=== PATIENT | female | born 1950 | race Caucasian/White ===

== ENCOUNTER 2017-06-30 08:25 | Day surgery (SDC) | payer MEDICARE, OTHER ==
[~2017-06-30 08:25] MED LIST: MEFOXIN 2 GM PREMIX** 50 ML IV ONE
[2017-06-30] MEDS ORDERED: VERSED 5 MG/5 ML IV ONE (08:26)
[2017-06-30] MEDS ORDERED: DEMEROL 50 MG IJ ONE (08:26)
[2017-06-30] MEDS ORDERED: Lactated Ringers 1,000 ML IV SCH (08:30)
[2017-06-30] MEDS: Sodium Chloride 0.9% 1000 ML 1,000 ML IV SCH ×2 (08:34→08:47)
[2017-06-30] MEDS ORDERED: Sodium Chloride 0.9% 1000 ML 1,000 ML ONE (08:45)
[2017-06-30 08:54] VITALS: O2SAT 99
[2017-06-30 11:52] VITALS: BP 122/75; PULSE 57
--- NOTE | 2017-07-01 08:29 | OP ---
SURGERY DATE/TIME: 06/30/2017 1001 PREOPERATIVE DIAGNOSES: 1) Epigastric pain. 2) Screening colonoscopy. POSTOPERATIVE DIAGNOSIS: PROCEDURES: 1) EGD with hot polypectomy x12. 2) Colonoscopy complete to cecum with hot polypectomy x1. SURGEON: Sloo Hester M.D. ANESTHESIA: IV sedation. COMPLICATIONS: None. CONDITION: Stable. INDICATION: The patient has epigastric pain. She has had heart cath and stents. She has not had a recent endoscopic examination. She is also requiring a screening for lower examination. DESCRIPTION OF PROCEDURE: She was taken to endoscopy suite. Left lateral decubitus position. After suitable sedation obtained the scope introduced. The esophagus is normal down to gastroesophageal junction. There was a rim of esophagitis grade III. The fundus and body had a generous number of polyps. Antrum satisfactory. Pylorus satisfactory. Duodenal bulb satisfactory. The second portion satisfactory. The scope withdrawn and looped upon itself. About a dozen polyps were coagulated. Floor Care Specialist sample submitted. Again noted grade III over III gastroesophageal reflux disease. No hiatal hernia. Scope withdrawn. Anal digital examination satisfactory. The scope advanced to the cecum. Base of the cecum clearly identified. There was a polyp 1 inch up from the base of the cecum taken with hot biopsy forceps. The scope was then advanced to the anus. Ascending, hepatic, transverse, splenic, descending, sigmoid, rectum, anus was satisfactory. Satisfactory prep today. Plan follow up in five years.
== END 2017-06-30 11:50 | disposition home or self-care (01) ==
LOC: SDC 08:25
PROVIDERS: ATTEND Surgery
PROC: 0DB68ZX Excision of Stomach, Via Natural or Artificial Opening Endoscopic, Diagnostic (ICD-10-PCS; principal; 2017-06-30)
PROC: 0DBH8ZX Excision of Cecum, Via Natural or Artificial Opening Endoscopic, Diagnostic (ICD-10-PCS; 2017-06-30)
DX: K21.9 Gastro-esophageal reflux disease without esophagitis (principal); D12.0 Benign neoplasm of cecum; K31.7 Polyp of stomach and duodenum; Z12.11 Encounter for screening for malignant neoplasm of colon; K20.9 Esophagitis, unspecified; Z85.3 Personal history of malignant neoplasm of breast; Z85.828 Personal history of other malignant neoplasm of skin; Z85.810 Personal history of malignant neoplasm of tongue
CPT/HCPCS: 36415; 88305; J2175; J2250

== ENCOUNTER 2020-08-26 13:31 | Emergency (ER) | payer MEDICARE, OTHER ==
[2020-08-26] MEDS ORDERED: TORAdol 30 mg Injection ONE (14:13)
[2020-08-26] MEDS: TORAdol 30 mg Injection IV ONE (14:14)
--- NOTE | 2020-08-26 14:31 | ERPHSYRPT ---
- History of Present Illness Historian: patient Patient Subjective Stated Complaint: pt here for right flank pain sudden onset today. no fever, no diffulity urination Triage Nursing Assessment: pt alert ,rubbing holding side,moaning out, abd soft, Physician History: 70 yo Wf w R flank pain x 50 minutes. Pt has a h/o kidney stones and states that pain is similar. Pain ranked 10 on scale and nothing makes better. Lying flat makes worse. Pt denies fever/N/V/D/chest pain/trauma/dysuria/hematuria. She states that we are limited to 1 stick for IV access, and I told her that we are trying to help her to the best of our abilities but would respect her wishes/restrictions. Timing/Duration: other (50min) Quality: aching Abdominal Pain Onset Location: flank Pain Radiation: no radiation Severity of Pain-Max: severe Severity of Pain-Current: severe Modifying Factors: Improves With: other (Nothing makes better/Worse w lying down) Associated Symptoms: back, No chest pain, No diaphoresis, No diarrhea, No fever/chills, No fatigue, No headache, No heartburn, No loss of appetite, No nausea, No neck pain, No rash, No shortness of breath, No syncope, No vomiting, No weakness Previous symptoms: same symptoms as today Allergies/Adverse Reactions: acetaminophen [From Vicodin] Allergy (Verified 08/26/20 13:44) amoxicillin Allergy (Verified 08/26/20 13:44) Swelling of Face azithromycin Allergy (Verified 08/26/20 13:44) Rash cephalexin monohydrate [From Keflex] Allergy (Verified 08/26/20 13:44) Swelling of Face doxycycline Allergy (Verified 08/26/20 13:44) Itching hydrocodone bitartrate [From Vicodin] Allergy (Verified 08/26/20 13:44) levofloxacin [From Levaquin] Allergy (Verified 08/26/20 13:44) methylprednisolone Allergy (Verified 08/26/20 13:44) Rash Sulfa (Sulfonamide Antibiotics) Allergy (Verified 08/26/20 13:44) Swelling of Eyelids sulfamethoxazole [From Bactrim] Allergy (Verified 08/26/20 13:44) Swelling of Tongue and Lips Tetanus Vaccines and Toxoid [Tetanus Vaccines & Toxoid] Allergy (Verified 08/26/20 13:44) Tightness of Throat trimethoprim [From Bactrim] Allergy (Verified 08/26/20 13:44) Blisters chlorpheniramine [From Tussionex] Adverse Reaction (Verified 08/26/20 13:44) Shortness of Breath ciprofloxacin [From Cipro] Adverse Reaction (Verified 08/26/20 13:44) Swelling of Face clindamycin Adverse Reaction (Verified 08/26/20 13:44) Itchy Eyes hydrocodone [From Tussionex] Adverse Reaction (Verified 08/26/20 13:44) Shortness of Breath loratadine [From Claritin] Adverse Reaction (Verified 08/26/20 13:44) Itching Home Medications: Levothyroxine Sodium 50 Mcg [Synthroid 50 Mcg] 50 mcg PO DAILY 12/30/14 [History] Cholecalciferol (Vitamin D3) [Vitamin D3] 1,000 unit PO DAILY 06/23/17 [History] Lansoprazole [Prevacid 24Hr] 15 mg PO DAILY 06/30/17 [History] Spironolactone 25 mg [Aldactone 25 MG] 1 ea DAILY 08/26/20 [History] Hx Tetanus, Diphtheria Vaccination/Date Given: No Hx Influenza Vaccination/Date Given: Yes Hx Pneumococcal Vaccination/Date Given: Yes Immunizations Up to Date: Yes Travel Risk - International Travel Have you traveled outside of the country in past 3 weeks: No - Coronavirus Screening Are you exhibiting any of the following symptoms?: No Close contact with a COVID-19 positive Pt in past 14-21 Days: No - Review of Systems Constitutional: No Symptoms Eyes: No Symptoms Ears, Nose, & Throat: No Symptoms Respiratory: No Symptoms Cardiac: No Symptoms Abdominal/Gastrointestinal: No Symptoms Genitourinary Symptoms: No Symptoms Musculoskeletal: No Symptoms Skin: No Symptoms Neurological: No Symptoms Psychological: No Symptoms Endocrine: No Symptoms Hematologic/Lymphatic: No Symptoms Immunological/Allergic: No Symptoms - Past Medical History Pertinent Past Medical History: Yes Neurological History: No Pertinent History ENT History: No Pertinent History Cardiac History: Arrhythmia, Hypertension Respiratory History: No Pertinent History Endocrine Medical History: Hypothyroidism Musculoskeletal History: Arthritis GI Medical History: Gallbladder Disease, Hernia, Other History: Other Psycho-Social History: No Pertinent History Female Reproductive Disorders: Breast Cancer, Other Other Medical History: BREAST CA W/ MASTECTOMY 17-18 YEARS AGO. , throat cancer - Past Surgical History Past Surgical History: Yes Neuro Surgical History: No Pertinent History Cardiac: Cardiac Catheterization Respiratory: Other Gastrointestinal: Appendectomy, Cholecystectomy, Hernia Repair Genitourinary: Other Musculoskeletal: Joint Replacement, Other Female Surgical History: Hysterectomy, Mastectomy Other Surgical History: breast ca,breast reconstruction twice,bladd er,1988,2006,colopexy 2008, right groin hernior. 2006,heart cath 2011,face skin cancer 2014,tongue cancer 2015,2017 - Social History Smoking Status: Never smoker Exposure to second hand smoke: No Drug Use: none Patient Lives Alone: Yes Significant Family History: no pertinent family hx - Female History Hx Last Menstrual Period: post Hx Now: No - Nursing Vital Signs Nursing Vital Signs: Initial Vital Signs Temperature 97.4 F 08/26/20 13:48 Pulse Rate 79 08/26/20 13:48 Respiratory Rate 22 08/26/20 13:48 Blood Pressure 197/93 08/26/20 13:48 O2 Sat by Pulse Oximetry 100 08/26/20 13:48 Pain Scale Pain Intensity 0 - Physical Exam General Appearance: mild distress (Due to pain) Eye Exam: PERRL/EOMI, eyes nml inspection, No scleral icterus, No pale conjunctivae Ears, Nose, Throat Exam: normal ENT inspection, TMs normal, pharynx normal, moist mucous membranes Neck Exam: normal inspection, non-tender, supple, full range of motion Respiratory Exam: normal breath sounds, lungs clear, No chest tenderness, No respiratory distress Cardiovascular Exam: regular rate/rhythm, normal heart sounds, normal peripheral pulses, No murmur Gastrointestinal/Abdomen Exam: soft, normal bowel sounds, No tenderness Back Exam: CVA tenderness (R flank) Extremity Exam: normal inspection, normal range of motion Neurologic Exam: alert, oriented x 3, cooperative, quality assurance assessor II-XII nml as tested, normal mood/affect, sensation nml, No motor deficits, No sensory deficit Skin Exam: normal color Lymphatic Exam: No adenopathy SpO2 Interpretation: normal SpO2: 100 O2 Delivery: Room Air - CT Exams Abdomen/Pelvis CT Interpretation: Discussed w/radiologist (2-3 mm R UVJ stone w hydro) Ordered Tests: Active Orders 24 hr Category Date Time Status IV Insertion STAT Care 08/26/20 14:14 Active ABDOMEN AND PELVIS W/0 CONTRAS [CT] Stat Exams 08/26/20 13:57 Completed CULTURE,URINE Stat Lab 08/26/20 16:20 Received UA W/RFX UR CULTURE Stat Lab 08/26/20 16:20 Completed Medication Summary Discontinued Medications Generic Name Dose Route Start Last Admin Trade Name Jose Luis PRN Reason Stop Dose Admin Sodium Chloride 1,000 mls @ 999 mls/hr 08/26/20 15:14 08/26/20 16:23 Sodium Chloride 0.9% 1000 Ml IV 08/26/20 16:14 Infused .Q1H1M STA Infusion Sodium Chloride Confirm 08/26/20 15:17 Sodium Chloride 0.9% 1000 Ml Administered 08/26/20 15:18 Dose 1,000 mls @ ud .ROUTE .STK-MED ONE Ketorolac Tromethamine 15 mg 08/26/20 13:57 08/26/20 14:14 Toradol 30 Mg Injection IV 08/26/20 13:58 15 mg STAT ONE Administration Ketorolac Tromethamine Confirm 08/26/20 14:13 Toradol 30 Mg Injection Administered 08/26/20 14:14 Dose 30 mg .ROUTE .STK-MED ONE Lab/Rad Data: Laboratory Results 08/26/20 Range/Units 16:20 Urine Color YELLOW (YELLOW) Urine Appearance CLEAR (CLEAR) Urine pH 6.0 (5-6) Ur Specific [place] 1.008 (1.005-1.025) Urine Protein NEGATIVE (Negative) Urine Ketones NEGATIVE (NEGATIVE) Urine Blood LARGE (0-5) [place]/ul Urine Nitrite NEGATIVE (NEGATIVE) Urine Bilirubin NEGATIVE (NEGATIVE) Urine Urobilinogen NEGATIVE (0-1) mg/dL Ur Leukocyte Esterase SMALL (NEGATIVE) Urine WBC (Auto) 3-5 (0-5) /HPF Urine RBC (Auto) 11-15 (0-2) /HPF U Epithel Cells (Auto) NONE (FEW) /HPF Urine Bacteria (Auto) RARE (NEGATIVE) /HPF Urine Mucus (Auto) SLIGHT (NEGATIVE) /HPF Urine Culture Reflexed YES (NO) Urine Glucose NEGATIVE (NEGATIVE) mg/dL - Progress Progress: improved Progress Note: 08/26/20 16:39 Pt became painfree w 15mg IV Toradol. - Departure Departure Disposition: Home Clinical Impression: Ureterolithiasis, Urinary tract infection Condition: Stable Critical Care Time: No Referrals: SANIYA SIMPSON [Primary Care Provider] - Instructions: Kidney Stones (DC), Urinary Tract Infection, Adult (DC) Additional Instructions: Strain all urine Pain meds as needed Cipro twice a day for 3 days Follow up with your family MD or urologist Return to ER for increasing pain or temperature greater than 100.5 Prescriptions: Hydrocodone/APAP 5-325 Tab^^^ [[place] 5-325 Tablet^^^] 1 each PO Q6HPRN PRN #5 tablet MDD 6 PRN Reason: Pain Ciprofloxacin HCl [Cipro] 500 mg PO BID 3 Days #6 tablet
--- NOTE | 2020-08-26 14:56 | XRAY ---
Indication: Right flank pain 4 days. Multiple contiguous axial images obtained through the abdomen and pelvis without contrast using renal stone protocol. Comparison: August 18, 2018. Lung bases again demonstrates minimal dependent atelectasis. No infiltrate or effusion. Heart is not enlarged. Stable small hiatal hernia. New 2-3 mm right UVJ calculus. Proximal right ureter is slightly prominent and there is mild hydronephrosis consistent with partial obstructive uropathy. Additional new punctate calculus in the right lower renal calyx. Stable hepatic/bilateral renal cysts, bilateral adrenal hypertrophy, appendectomy, hysterectomy, and cholecystectomy. No free fluid/air. Noncontrasted stomach and bowel loops appear nonobstructed. Stable sigmoid diverticulosis. Remaining liver, pancreas, spleen, adrenal glands, kidneys, ureters, and bladder appear unremarkable for noncontrast exam. Stable mild aortoiliac calcifications without AAA. Osseous structures intact again with mild degenerative changes throughout the thoracolumbar spine, minimal grade 1 L4 spondylolisthesis, and tiny left innominate bone island. Impression: 1. New 2-3 mm right UVJ calculus producing partial obstructive uropathy. Additional right renal micro-calculus. 2. Stable sigmoid diverticulosis, small hiatal hernia, hepatic/bilateral renal cysts, bilateral adrenal hypertrophy, and chronic bony findings.
[2020-08-26] MEDS ORDERED: Sodium Chloride 0.9% 1000 ML 1,000 ML ONE (15:17)
[2020-08-26] MEDS: Sodium Chloride 0.9% 1000 ML 1,000 ML IV STA (15:19)
[2020-08-26 16:32] LABS: Appearance CLEAR (CLEAR); Bacteria RARE /HPF (NEGATIVE); Bilirubin NEGATIVE (NEGATIVE); Blood LARGE Ery/ul (0-5); Glucose NEGATIVE (NEGATIVE); Ketones NEGATIVE (NEGATIVE); Leukocyte Esterase SMALL (NEGATIVE); Mucus SLIGHT /HPF (NEGATIVE); Nitrite NEGATIVE (NEGATIVE); Protein,Urine Dip NEGATIVE (Negative); Specific Gravity 1.008 (1.005-1.025); Urobilinogen NEGATIVE mg/dL (0-1)
[2020-08-26 16:54] VITALS: BP 170/83; PULSE 76; O2SAT 97
== END 2020-08-26 17:00 | disposition home or self-care (01) ==
LOC: ED 13:31
DX: N20.1 Calculus of ureter (principal); N39.0 Urinary tract infection, site not specified
CPT/HCPCS: 36000; 74176; 81001; 87086; 96360; 96374; 99284; J1885

== ENCOUNTER 2022-06-11 11:37 | Emergency (ER) | payer MEDICARE, OTHER ==
--- NOTE | 2022-06-11 11:39 | ERPHSYRPT ---
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 Conklin. She has not been on spironolactone for 2 weeks. Today she felt as though she was having a little bit of a headache and may be some visual changes that were minor but present. Her systolic blood pressure at that time was 171. She then called the ambulance service and they took her blood pressure and that systolic blood pressure reading was 200. Patient refused transport to the emergency department. Patient arrives to the emergency department with a systolic blood pressure of 208. Patient is refusing an IV. Patient does have a history of hypothyroidism and gastroesophageal reflux disease as well as some renal issues. Timing/Duration: today Associated Symptoms: headaches, No shortness of breath, No chest pain Allergies/Adverse Reactions: amoxicillin Allergy (Verified 06/11/22 12:24) Swelling of Face azithromycin Allergy (Verified 06/11/22 12:24) Rash cephalexin monohydrate [From Keflex] Allergy (Verified 06/11/22 12:24) Swelling of Face cetirizine [From Zyrtec] Allergy (Verified 06/11/22 12:24) doxycycline Allergy (Verified 06/11/22 12:24) Itching methylprednisolone Allergy (Verified 06/11/22 12:24) Rash ranitidine [From Zantac] Allergy (Verified 06/11/22 12:24) Sulfa (Sulfonamide Antibiotics) Allergy (Verified 06/11/22 12:24) Swelling of Eyelids sulfamethoxazole [From Bactrim] Allergy (Verified 06/11/22 12:24) Swelling of Tongue and Lips Tetanus Vaccines and Toxoid [Tetanus Vaccines & Toxoid] Allergy (Verified 06/11/22 12:24) Tightness of Throat trimethoprim [From Bactrim] Allergy (Verified 06/11/22 12:24) Blisters chlorpheniramine [From Tussionex] Adverse Reaction (Verified 06/11/22 12:24) Shortness of Breath ciprofloxacin [From Cipro] Adverse Reaction (Verified 06/11/22 12:24) Swelling of Face clindamycin Adverse Reaction (Verified 06/11/22 12:24) Itchy Eyes hydrocodone [From Tussionex] Adverse Reaction (Verified 06/11/22 12:24) Shortness of Breath loratadine [From Claritin] Adverse Reaction (Verified 06/11/22 12:24) Itching Home Medications: Levothyroxine Sodium 50 Mcg [Synthroid 50 Mcg] 50 mcg PO DAILY 12/30/14 [History] Cholecalciferol (Vitamin D3) [Vitamin D3] 1,000 unit PO DAILY 06/23/17 [History] Lansoprazole [Prevacid 24Hr] 15 mg PO DAILY 06/30/17 [History] Spironolactone 25 mg [Aldactone 25 MG] 1 ea DAILY 08/26/20 [History] Hx Tetanus, Diphtheria Vaccination/Date Given: No Hx Influenza Vaccination/Date Given: Yes Hx Pneumococcal Vaccination/Date Given: Yes Travel Risk - International Travel Have you traveled outside of the country in past 3 weeks: No - Coronavirus Screening Are you exhibiting any of the following symptoms?: No Close contact with a COVID-19 positive Pt in past 14-21 Days: No - Review of Systems Constitutional: No Symptoms Eyes: Vision Changes (Minor blurred visionresolved) Ears, Nose, & Throat: No Symptoms Respiratory: No Symptoms Cardiac: No Symptoms Abdominal/Gastrointestinal: No Symptoms Genitourinary Symptoms: No Symptoms Musculoskeletal: No Symptoms Skin: No Symptoms Neurological: Headache Psychological: No Symptoms Endocrine: No Symptoms Hematologic/Lymphatic: No Symptoms Immunological/Allergic: No Symptoms All Other Systems: Reviewed and Negative - Past Medical History Pertinent Past Medical History: Yes Neurological History: No Pertinent History ENT History: No Pertinent History Cardiac History: Hypertension Respiratory History: No Pertinent History Endocrine Medical History: Hypothyroidism Musculoskeletal History: Arthritis GI Medical History: Gallbladder Disease, Hernia, Other History: Other Psycho-Social History: No Pertinent History Female Reproductive Disorders: Breast Cancer, Other Other Medical History: BREAST CA W/ MASTECTOMY 17-18 YEARS AGO. , throat cancer - Past Surgical History Past Surgical History: Yes Neuro Surgical History: No Pertinent History Cardiac: Cardiac Catheterization Respiratory: Other Gastrointestinal: Appendectomy, Cholecystectomy, Hernia Repair Genitourinary: Other Musculoskeletal: Joint Replacement, Other Female Surgical History: Hysterectomy, Mastectomy Other Surgical History: breast ca,breast reconstruction twice,trisha dder,1988,2006,colopexy 2008, right groin hernior. 2007,heart cath 2011,face skin cancer 2015,tongue cancer 2016,2017 - Social History Smoking Status: Never smoker Exposure to second hand smoke: No Drug Use: none Patient Lives Alone: Yes Significant Family History: no pertinent family hx - Nursing Vital Signs Nursing Vital Signs: Initial Vital Signs Temperature 98.3 F 06/11/22 11:53 Pulse Rate 80 06/11/22 11:53 Respiratory Rate 15 06/11/22 11:53 Blood Pressure 208/103 06/11/22 11:53 O2 Sat by Pulse Oximetry 99 06/11/22 11:53 Pain Scale Pain Intensity 5 - Physical Exam General Appearance: no apparent distress, alert, anxiety Eye Exam: PERRL/EOMI, eyes nml inspection Ears, Nose, Throat Exam: normal ENT inspection, moist mucous membranes Neck Exam: normal inspection, non-tender, supple, full range of motion Respiratory Exam: normal breath sounds, lungs clear, airway intact, No chest tenderness, No respiratory distress Cardiovascular Exam: regular rate/rhythm, normal heart sounds, normal peripheral pulses Gastrointestinal/Abdomen Exam: soft, normal bowel sounds, No tenderness Pelvic Exam: not done Rectal Exam: not done Back Exam: normal inspection, normal range of motion, No CVA tenderness, No vertebral tenderness Extremity Exam: normal inspection, normal range of motion, pelvis stable Neurologic Exam: alert, oriented x 3, cooperative, bread icer II-XII nml as tested, normal mood/affect, nml cerebellar function, nml station & gait, sensation nml Skin Exam: normal color, warm, dry Lymphatic Exam: No adenopathy SpO2 Interpretation: normal O2 Delivery: Room Air - Course Nursing assessment & vital signs reviewed: Yes EKG Interpreted by Me: RATE (70), Sinus Rhythm, Left [place] Deviation, NORMAL INTERVALS, NORMAL QRS, NORMAL ST-T, Other (No acute ischemic changes present) Ordered Tests: Active Orders 24 hr Category Date Time Status Automatic Machines Supervisor STAT Care 06/11/22 12:01 Active EKG-ER Only STAT Care 06/11/22 12:01 Active IV Insertion STAT Care 06/11/22 12:01 Active NPO (ED) STAT Care 06/11/22 12:01 Active Pulse Oximetry (ED) STAT Care 06/11/22 12:01 Active HEAD WITHOUT CONTRAST [CT] Stat Exams 06/11/22 12:18 Completed CBC W DIFF Stat Lab 06/11/22 12:40 Completed CMP Stat Lab 06/11/22 12:40 Completed T4 (Thyroxine) Stat Lab 06/11/22 12:40 Completed TSH [TSH, 3RD Generation] Stat Lab 06/11/22 12:40 Completed Medication Summary Discontinued Medications Generic Name Dose Route Start Last Admin Trade Name Jose Luis PRN Reason Stop Dose Admin Clonidine 0.1 mg 06/11/22 12:02 06/11/22 12:14 Clonidine Hcl 0.1 Mg Tablet PO 06/11/22 12:03 0.1 mg STAT ONE Administration Clonidine Confirm 06/11/22 12:14 Clonidine Hcl 0.1 Mg Tablet Administered 06/11/22 12:15 Dose 0.1 mg .ROUTE .STK-MED ONE Clonidine 0.1 mg 06/11/22 13:34 06/11/22 13:37 Clonidine Hcl 0.1 Mg Tablet PO 06/11/22 13:35 0.1 mg STAT ONE Administration Clonidine Confirm 06/11/22 13:37 Clonidine Hcl 0.1 Mg Tablet Administered 06/11/22 13:38 Dose 0.1 mg .ROUTE .STK-MED ONE Ibuprofen 600 mg 06/11/22 12:43 06/11/22 12:46 Ibuprofen 600 Mg Tablet PO 06/11/22 12:44 600 mg STAT ONE Administration Ibuprofen Confirm 06/11/22 12:45 Ibuprofen 600 Mg Tablet Administered 06/11/22 12:46 Dose 600 mg .ROUTE .STK-MED ONE Lab/Rad Data: Laboratory Result Diagrams 06/11/22 12:40 06/11/22 12:40 Laboratory Results 06/11/22 06/11/22 06/11/22 Range/Units 12:40 12:40 12:40 WBC (4.0-10.5) x10^3/uL RBC (4.1-5.4) x10^6/uL Hgb (12.0-16.0) g/dL Hct (35-47) % MCV (78-100) fL MCH (26-32) pg MCHC (32-36) g/dL RDW (11.5-14.0) % Plt Count (150-450) x10^3/uL MPV (7.5-11.0) fL Gran % (36.0-66.0) % Immature Gran % (Auto) (0.00-0.4) % Nucleat RBC Rel Count (0.00-0.1) % Eos # (Auto) (0-0.5) x10^3/uL Immature Gran # (Auto) (0.00-0.03) x10^3u/L Absolute Lymphs (auto) (1.0-4.6) x10^3/uL Absolute Monos (auto) (0.0-1.3) x10^3/uL Absolute Nucleated RBC (0.00-0.01) x10^3u/L Lymphocytes % (24.0-44.0) % Monocytes % (0.0-12.0) % Eosinophils % (0.00-5.0) % Basophils % (0.0-0.4) % Absolute Granulocytes (1.4-6.9) x10^3/uL Basophils # (0-0.4) x10^3/uL Sodium 141 (137-145) mmol/L Potassium 4.1 (3.5-5.1) mmol/L Chloride 106 (98-107) mmol/L Carbon Dioxide 27 (22-30) mmol/L Anion Gap 11.9 (5-15) MEQ/L BUN 18 H (7-17) mg/dL Creatinine 0.78 (0.52-1.04) mg/dL Estimated GFR > 60.0 ML/MIN Glucose 97 (74-106) mg/dL Calcium 9.9 (8.4-10.2) mg/dL Total Bilirubin 1.00 (0.2-1.3) mg/dL AST 23 (14-36) U/L ALT 14 (0-35) U/L Alkaline Phosphatase 107 (38-126) U/L Serum Total Protein 7.8 (6.3-8.2) g/dL Albumin 4.5 (3.5-5.0) g/dL Thyroxine (T4) 6.91 (5.53-10.96) ug/dL TSH 3rd Generation 1.010 (0.47-4.68) mIU/L 06/11/22 Range/Units 12:40 WBC 5.8 (4.0-10.5) x10^3/uL RBC 4.65 (4.1-5.4) x10^6/uL Hgb 13.3 (12.0-16.0) g/dL Hct 41.6 (35-47) % MCV 89.5 (78-100) fL MCH 28.6 (26-32) pg MCHC 32.0 (32-36) g/dL RDW 13.8 (11.5-14.0) % Plt Count 305 (150-450) x10^3/uL MPV 9.2 (7.5-11.0) fL Gran % 78.2 H (36.0-66.0) % Immature Gran % (Auto) 0.2 (0.00-0.4) % Nucleat RBC Rel Count 0.0 (0.00-0.1) % Eos # (Auto) 0 (0-0.5) x10^3/uL Immature Gran # (Auto) 0.01 (0.00-0.03) x10^3u/L Absolute Lymphs (auto) 0.72 L (1.0-4.6) x10^3/uL Absolute Monos (auto) 0.51 (0.0-1.3) x10^3/uL Absolute Nucleated RBC 0.00 (0.00-0.01) x10^3u/L Lymphocytes % 12.5 L (24.0-44.0) % Monocytes % 8.9 (0.0-12.0) % Eosinophils % 0.0 (0.00-5.0) % Basophils % 0.2 (0.0-0.4) % Absolute Granulocytes 4.51 (1.4-6.9) x10^3/uL Basophils # 0.01 (0-0.4) x10^3/uL Sodium (137-145) mmol/L Potassium (3.5-5.1) mmol/L Chloride (98-107) mmol/L Carbon Dioxide (22-30) mmol/L Anion Gap (5-15) MEQ/L BUN (7-17) mg/dL Creatinine (0.52-1.04) mg/dL Estimated GFR ML/MIN Glucose (74-106) mg/dL Calcium (8.4-10.2) mg/dL Total Bilirubin (0.2-1.3) mg/dL AST (14-36) U/L ALT (0-35) U/L Alkaline Phosphatase (38-126) U/L Serum Total Protein (6.3-8.2) g/dL Albumin (3.5-5.0) g/dL Thyroxine (T4) (5.53-10.96) ug/dL TSH 3rd Generation (0.47-4.68) mIU/L - Progress Progress: improved Progress Note: 06/11/22 12:48 CT scan of the brain without contrast shows nonacute senile brain Counseled pt/family regarding: lab results, diagnosis, need for follow-up, rad results - Departure Departure Disposition: Home Clinical Impression: Hypertension Condition: Stable Critical Care Time: No Referrals: SANIYA SIMPSON NP [Primary Care Provider] - Follow up/PCP as directed Additional Instructions: Call your prescribing physician today to make arrangements for follow-up appointment and further evaluation and management.
[2022-06-11] MEDS ORDERED: CLONIDINE 0.1 MG TABLET PO ONE ×2 (12:02→13:34)
[2022-06-11] MEDS ORDERED: CLONIDINE 0.1 MG TABLET ONE ×2 (12:14→13:37)
--- NOTE | 2022-06-11 12:36 | XRAY ---
Indication: Headache and visual changes. Hypertension. Multiple contiguous axial images obtained through the head without contrast. Comparison: August 19, 2021. Again age-appropriate global atrophy and mild periventricular degenerative micro-ischemia. No acute intracranial hemorrhage, abnormal extra-axial fluid collection, or mass effect. Fourth ventricle is midline without hydrocephalus. Bony calvarium intact. Visualized paranasal sinuses and mastoid air cells are clear. Impression: Continued nonacute senile brain.
[2022-06-11] MEDS ORDERED: MOTRIN 600 MG PO ONE (12:43)
[2022-06-11] MEDS ORDERED: MOTRIN 600 MG ONE (12:45)
[2022-06-11 12:46] LABS: Absolute Neutrophil Ct (ANC) 4.51 x10^3/uL (1.4-6.9); Basophil (Absolute #) 0.01 x10^3/uL (0-0.4); Eosinophil (Absolute #) 0 x10^3/uL (0-0.5); Hematocrit 41.6 % (35-47); Hemoglobin 13.3 g/dL (12.0-16.0); Lymphocyte (Absolute #) 0.72 x10^3/uL (1.0-4.6); Lymphocytes % 12.5 % (24.0-44.0); Mean Cell Volume 89.5 fL (78-100); Mean Corpuscular Hemoglobin 28.6 pg (26-32); Mean Platelet Volume 9.2 fL (7.5-11.0); Monocyte (Absolute #) 0.51 x10^3/uL (0.0-1.3); Monocytes % 8.9 % (0.0-12.0); Neutrophil % 78.2 % (36.0-66.0); Platelet Count 305 x10^3/uL (150-450); Red Blood Count 4.65 x10^6/uL (4.1-5.4); Red Cell Distribution Width 13.8 % (11.5-14.0); White Blood Count 5.8 x10^3/uL (4.0-10.5)
[2022-06-11 12:57] LABS: ALBUMIN 4.5 g/dL (3.5-5.0); ALKALINE PHOSPHATASE 107 U/L (38-126); ANION GAP 11.9 MEQ/L (5-15); BLOOD UREA NITROGEN 18 mg/dL (7-17); CHLORIDE 106 mmol/L (98-107); Calcium 9.9 mg/dL (8.4-10.2); Carbon Dioxide 27 mmol/L (22-30); Creatinine 1 0.78 mg/dL (0.52-1.04); EST GLOMERULAR FILTRATION RATE > 60.0 ML/MIN; Glucose 97 mg/dL (74-106); Potassium 4.1 mmol/L (3.5-5.1); SGOT/AST 23 U/L (14-36); SGPT/ALT 14 U/L (0-35); SODIUM 141 mmol/L (137-145); Total Protein 7.8 g/dL (6.3-8.2)
[2022-06-11 13:53] VITALS: BP 166/96; PULSE 72; O2SAT 96
== END 2022-06-11 13:58 | disposition home or self-care (01) ==
LOC: ED 11:37
DX: I10 Essential (primary) hypertension (principal); R51.9 Headache, unspecified; Z79.899 Other long term (current) drug therapy
CPT/HCPCS: 36415; 70450; 80053; 84436; 84443; 85025; 93005; 93041; 94760; 99284; A9270-GY

== ENCOUNTER 2022-06-28 20:10 | Emergency (ER) | payer MEDICARE, OTHER ==
--- NOTE | 2022-06-28 20:24 | ERPHSYRPT ---
- History of Present Illness Time Seen by Provider: 06/28/22 20:24 Source: patient Exam Limitations: no limitations Physician History: This is a 72-year-old white female patient who has a history of hypertension and has some kidney issues and sees table assembler metal Dr. Conklin. Patient has had her spironolactone discontinued from her hypertension regimen because of episodes of hypotension. She has been off this medication for approximately a month. She has noticed an increase in her blood pressure. She has more episodes of hypertension since she has been off the spironolactone. She was seen here on 06/11/2022 for similar symptoms. Patient specifically stated today that she does not want an IV or lab work obtained. She is aware she will need to sign a refusal of IV and lab work form. She does agree to a CAT scan of the head. Patient has an appointment with her table assembler metal on 07/14/2022 but is concerned about the blood pressure at this point. She has used clonidine in the past which has helped keep her blood pressure in a better range. Timing/Duration: today Severity: moderate Associated Symptoms: headaches Allergies/Adverse Reactions: amoxicillin Allergy (Verified 06/11/22 12:24) Swelling of Face azithromycin Allergy (Verified 06/11/22 12:24) Rash cephalexin monohydrate [From Keflex] Allergy (Verified 06/11/22 12:24) Swelling of Face cetirizine [From Zyrtec] Allergy (Verified 06/11/22 12:24) doxycycline Allergy (Verified 06/11/22 12:24) Itching methylprednisolone Allergy (Verified 06/11/22 12:24) Rash ranitidine [From Zantac] Allergy (Verified 06/11/22 12:24) Sulfa (Sulfonamide Antibiotics) Allergy (Verified 06/11/22 12:24) Swelling of Eyelids sulfamethoxazole [From Bactrim] Allergy (Verified 06/11/22 12:24) Swelling of Tongue and Lips Tetanus Vaccines and Toxoid [Tetanus Vaccines & Toxoid] Allergy (Verified 06/11/22 12:24) Tightness of Throat trimethoprim [From Bactrim] Allergy (Verified 06/11/22 12:24) Blisters chlorpheniramine [From Tussionex] Adverse Reaction (Verified 06/11/22 12:24) Shortness of Breath ciprofloxacin [From Cipro] Adverse Reaction (Verified 06/11/22 12:24) Swelling of Face clindamycin Adverse Reaction (Verified 06/11/22 12:24) Itchy Eyes hydrocodone [From Tussionex] Adverse Reaction (Verified 06/11/22 12:24) Shortness of Breath loratadine [From Claritin] Adverse Reaction (Verified 06/11/22 12:24) Itching Home Medications: Levothyroxine Sodium 50 Mcg [Synthroid 50 Mcg] 50 mcg PO DAILY 12/30/14 [History] Cholecalciferol (Vitamin D3) [Vitamin D3] 1,000 unit PO DAILY 06/23/17 [History] Lansoprazole [Prevacid 24Hr] 15 mg PO DAILY 06/30/17 [History] Spironolactone 25 mg [Aldactone 25 MG] 1 ea DAILY 08/26/20 [History] Hx Tetanus, Diphtheria Vaccination/Date Given: No Hx Influenza Vaccination/Date Given: Yes Hx Pneumococcal Vaccination/Date Given: Yes Travel Risk - International Travel Have you traveled outside of the country in past 3 weeks: No - Coronavirus Screening Are you exhibiting any of the following symptoms?: No Close contact with a COVID-19 positive Pt in past 14-21 Days: No - Vaccine Status Have you recieved a Covid-19 vaccination: Yes 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 - Vaccination Dates Date of 2cond Vaccination (if applicable): 2020 - Review of Systems Constitutional: No Symptoms Eyes: No Symptoms Ears, Nose, & Throat: No Symptoms Respiratory: No Symptoms Cardiac: No Symptoms Abdominal/Gastrointestinal: No Symptoms Genitourinary Symptoms: No Symptoms Musculoskeletal: No Symptoms Skin: No Symptoms Neurological: Headache Psychological: No Symptoms Endocrine: No Symptoms Hematologic/Lymphatic: No Symptoms Immunological/Allergic: No Symptoms All Other Systems: Reviewed and Negative - Past Medical History Pertinent Past Medical History: Yes Neurological History: No Pertinent History ENT History: No Pertinent History Cardiac History: Hypertension Respiratory History: No Pertinent History Endocrine Medical History: Hypothyroidism Musculoskeletal History: Arthritis GI Medical History: Gallbladder Disease, Hernia, Other History: Other Psycho-Social History: No Pertinent History Female Reproductive Disorders: Breast Cancer, Other Other Medical History: BREAST CA W/ MASTECTOMY 17-18 YEARS AGO. , throat cancer - Past Surgical History Past Surgical History: Yes Neuro Surgical History: No Pertinent History Cardiac: Cardiac Catheterization Respiratory: Other Gastrointestinal: Appendectomy, Cholecystectomy, Hernia Repair Genitourinary: Other Musculoskeletal: Joint Replacement, Other Female Surgical History: Hysterectomy, Mastectomy Other Surgical History: breast ca,breast reconstruction twice,bladder,1988,2006,colopexy 2008, right groin hernior. 2006,heart cath 2011,face skin cancer 2014,tongue cancer 2015,2017 - Social History Smoking Status: Never smoker Exposure to second hand smoke: No Drug Use: none Patient Lives Alone: Yes Significant Family History: no pertinent family hx - Nursing Vital Signs Nursing Vital Signs: Initial Vital Signs Temperature 97.8 F 06/28/22 20:27 Pulse Rate 84 06/28/22 20:27 Respiratory Rate 18 06/28/22 20:27 Blood Pressure 189/105 06/28/22 20:27 O2 Sat by Pulse Oximetry 99 06/28/22 20:27 Pain Scale Pain Intensity 0 - Physical Exam General Appearance: no apparent distress, alert, anxiety Eye Exam: PERRL/EOMI Ears, Nose, Throat Exam: normal ENT inspection, moist mucous membranes Neck Exam: normal inspection, non-tender, supple, full range of motion Respiratory Exam: normal breath sounds, lungs clear, airway intact, No chest tenderness, No respiratory distress Cardiovascular Exam: regular rate/rhythm, normal heart sounds, normal peripheral pulses Gastrointestinal/Abdomen Exam: soft, normal bowel sounds, No tenderness Pelvic Exam: not done Rectal Exam: not done Back Exam: normal inspection, normal range of motion, No CVA tenderness, No vertebral tenderness Extremity Exam: normal inspection, normal range of motion, pelvis stable Neurologic Exam: alert, oriented x 3, cooperative, faculty instructor II-XII nml as tested, normal mood/affect, nml cerebellar function, nml station & gait, sensation nml Skin Exam: normal color, warm, dry Lymphatic Exam: adenopathy SpO2 Interpretation: normal O2 Delivery: Room Air Ordered Tests: Active Orders 24 hr Category Date Time Status HEAD WITHOUT CONTRAST [CT] Stat Exams 06/28/22 22:48 Taken Medication Summary Discontinued Medications Generic Name Dose Route Start Last Admin Trade Name Freq PRN Reason Stop Dose Admin Clonidine 0.1 mg 06/28/22 21:42 06/28/22 21:47 Clonidine Hcl 0.1 Mg Tablet PO 06/28/22 21:43 0.1 mg STAT ONE Administration Clonidine Confirm 06/28/22 21:45 Clonidine Hcl 0.1 Mg Tablet Administered 06/28/22 21:46 Dose 0.1 mg .ROUTE .[employer] ONE - Progress Progress: improved Progress Note: 06/29/22 00:17 Patient continues not to want to have any lab work drawn or into the venous line placed. CAT scan of the head without contrast shows no acute intracranial abnormality. Medical decision making: This patients high blood pressure responded to clonidine well. However her blood pressure is slowly becoming higher. Patient is refusing a second clonidine because this dropped her blood pressure significantly when she received a second dose of clonidine. Therefore, we will send a prescription for clonidine to her pharmacy to be filled later today and she can take this medication twice a day. She was told to make sure she checks her blood pressure prior to taking the clonidine. She is going to call her table assembler metal later today to try to move up her appointment. We will make an attempt to contact his office as well later in the morning to see if we can help in moving her appointment up earlier. Counseled pt/family regarding: diagnosis, need for follow-up, rad results - Departure Departure Disposition: Home Clinical Impression: Hypertensive urgency, Headache Condition: Stable Critical Care Time: Yes Critical Care Time(excluding separately billable procedures): Critical 30-74 mins (30 minutes) Referrals: SANIYA SIMPSON NP [Primary Care Provider] - Follow up/PCP as directed Additional Instructions: Continue monitoring your blood pressure 3 times a day and keep a daily log. Call your table assembler metal tomorrow morning to see if you can move your appointment to an earlier one. Prescriptions: Clonidine HCl 0.1 mg [Clonidine 0.1 mg Tablet] 0.1 mg PO BID #10 tablet
[2022-06-28] MEDS ORDERED: CLONIDINE 0.1 MG TABLET PO ONE (21:42)
[2022-06-28] MEDS ORDERED: CLONIDINE 0.1 MG TABLET ONE (21:45)
[2022-06-29 00:41] VITALS: BP 167/105; PULSE 61; O2SAT 99
--- NOTE | 2022-06-29 09:11 | XRAY ---
Indication: Headache. Multiple contiguous axial images obtained through the head without contrast. Comparison: June 11, 2022 Stable age-appropriate global atrophy and mild periventricular degenerative micro-ischemia. No acute intracranial hemorrhage, abnormal extra-axial fluid collection, or mass effect. Fourth ventricle is midline without hydrocephalus. Bony calvarium intact. Paranasal sinuses and mastoid air cells are clear. Impression: Continued nonacute senile brain. Comment: Preliminary interpretation made by [facility] [[email or web address]]. No critical discrepancy.
== END 2022-06-29 00:41 | disposition home or self-care (01) ==
LOC: ED 20:10
DX: I16.0 Hypertensive urgency (principal); R51.9 Headache, unspecified; Z79.899 Other long term (current) drug therapy
CPT/HCPCS: 70450; 99283; 99291; A9270-GY

== ENCOUNTER 2024-08-09 11:28 | Day surgery (SDC) | payer MEDICARE, OTHER ==
[2024-08-09] MEDS ORDERED: Lactated Ringers 1,000 ML IV ONE (11:31)
[2024-08-09 11:47] VITALS: RESP 18
[2024-08-09] MEDS: Lactated Ringers 1,000 ML IV SCH (11:48)
[2024-08-09] MEDS ORDERED: DIPRIVAN 200 MG/20 ML IV ONE ×2 (13:17→13:30)
[2024-08-09] MEDS ORDERED: Xylocaine-Mpf 2% 5 Ml Vial ONE (13:17)
[2024-08-09 14:14] VITALS: TEMP 97.8
[2024-08-09 14:24] VITALS: BP 185/94; PULSE 63; O2SAT 99
--- NOTE | 2024-08-10 10:13 | OP ---
SURGERY DATE/TIME: 08/09/2024 [id number] PREOPERATIVE DIAGNOSES: 1) Dysphagia. 2) History of colon polyps. POSTOPERATIVE DIAGNOSES: 1) Gastritis. 2) Esophageal stricture. 3) Colon polyps. 4) Diverticulosis. 5) Gastric polyps. PROCEDURES: 1) Esophagogastroduodenoscopy with dilation, biopsy. 2) Colonoscopy with multiple polypectomies. SURGEON: Teddy Hester MD ANESTHESIA: IV anesthesia. CONDITION: Stable. COMPLICATIONS: None. SPECIMENS: 1) Antrum for H pylori. 2) Gastric polyps. 3) Cecal polyp 8 mm. 4) Descending polyp 2 mm. 5) Sigmoid polyp 2 mm. INDICATION: The patient has a history of head and neck cancer, partial glossectomy, radiation and neck dissection that does have dysphagia. Things kind of hang up in the upper throat, also having heartburn despite medication. Discussed with patient risk of infection, bleeding, injury to nearby structure. She also has a history of colon polyps and desires to proceed with colonoscopy. FINDINGS: Cricopharyngeal stricture, mild mucosal disruption after dilation to 20 mm, gastritis with erythema. Biopsy taken for H pylori. Three small colon polyps. Good preparation. DESCRIPTION OF PROCEDURE AND FINDINGS: Patient was brought to the endoscopy suite. Routinely positioned and prepared. Time-out performed. IV anesthesia induced by Anesthesia. The gastroscope was inserted through the mouth, advanced to the third portion of the duodenum. Duodenum was normal in appearance. The stomach did have mild to moderate gastritis with erythema. Biopsies were taken of the antrum for H pylori. Also in the stomach, there are just innumerable gastric polyps, fundic gland in appearance, all less than 1 cm in size. Hatchery Man biopsy taken and polypectomy sent as gastric polyp. Retroflexion just maybe with 1 cm hiatal hernia, very small. Esophagus normal distally but at the cricopharyngeus is strictured. The 18 to 20 balloon was then dilated to 20 mm and upon completion, there was just mild mucosal disruption and just mild resistance at the 20 mm. Stomach is suctioned out, scope was withdrawn. Patient tolerated that well. Digital rectal exam just with minimal hemorrhoid. The scope was inserted and advanced to the cecum, confirmed by the appendiceal orifice and the ileocecal valve. The Aronchick preparation was an Aronchick good. The withdrawal time was greater than 6 minutes. On withdrawal, there are diverticulosis and then there is a: 1) Cecal polyp, 8 mm taken with a hot snare. 2) Descending polyp, 2 mm taken with a forceps. 3) Sigmoid polyp, 2 mm taken with a forceps. The patient tolerated the procedure well. RECOMMENDATIONS: Follow up in office 2 to 4 weeks. Probably would be 3 to 5 years on her colonoscopy. Would see how her dysphagia responded to the dilation.
== END 2024-08-09 15:29 | disposition home or self-care (01) ==
LOC: SDC 11:28
PROVIDERS: ATTEND Surgery
DX: Z09 Encounter for follow-up examination after completed treatment for conditions other than malignant neoplasm (principal); Z86.0100 Personal history of colon polyps, unspecified; R13.10 Dysphagia, unspecified; K29.70 Gastritis, unspecified, without bleeding; K22.2 Esophageal obstruction; K57.30 Diverticulosis of large intestine without perforation or abscess without bleeding; K64.9 Unspecified hemorrhoids; D12.0 Benign neoplasm of cecum; D12.4 Benign neoplasm of descending colon; D12.5 Benign neoplasm of sigmoid colon
CPT/HCPCS: 93005; 99100; C1726; J2704